=== PATIENT | male | born 1955 | race Caucasian/White ===

== ENCOUNTER 2016-12-31 12:05 | Emergency (ER) | payer OTHER ==
[2016-12-31 13:18] LABS: BASOPHIL 0.6 % (0-2); EOSINOPHIL 7.3 % (0-5); HGB 15.8 g/dl (13.2-18.0); LYMPHOCYTE 26.6 % (15-48); MCH 30.6 pg (25.0-31.0); MCHC 33.6 g/dL (32.0-36.0); MCV 90.9 fL (78.0-100.0); MPV 10.3 fL (6.0-9.5); NEUTROPHIL 52.5 % (41-80); PLT 207 K/uL (150-400); RBC 5.17 M/uL (4.70-6.00); WBC 6.7 K/uL (4.0-10.5)
[2016-12-31 13:27] LABS: ALBUMIN 4.3 g/dL (3.4-4.8); BILIRUBIN - TOTAL 0.5 mg/dL (0.1-1.0); CREATININE 1.5 mg/dL (0.7-1.2); GLOBULIN (CALCULATION) 2.9 g/dL (2.2-4.2); POTASSIUM 4.7 mmol/L (3.5-5.1); TOTAL PROTEIN 7.2 g/dL (6.4-8.3)
[2016-12-31 14:01] LABS: BILIRUBIN NEGATIVE (NEGATIVE); BLOOD 2+ Ery/uL (NEGATIVE); CLARITY CLEAR (CLEAR); COLOR YELLOW (YELLOW); GLUCOSE (U) NORMAL (NORMAL); KETONE (U) NEGATIVE (NEGATIVE); LEUKOCYTES NEGATIVE Leu/uL (NEGATIVE); NITRITE NEGATIVE (NEGATIVE); PROTEIN NEGATIVE (NEGATIVE); UROBILINOGEN 0.2 mg/dL (0.2-1.0); pH 6.5 (5.0-9.0)
[2016-12-31 14:05] LABS: URINARY RBC 20-50; URINARY WBC RARE
== END 2016-12-31 15:24 | disposition home or self-care (01) ==
LOC: FER 12:05
PROVIDERS: Emergency Medicine
DX: K57.92 Diverticulitis of intestine, part unspecified, without perforation or abscess without bleeding (principal); Z87.19 Personal history of other diseases of the digestive system; Z82.49 Family history of ischemic heart disease and other diseases of the circulatory system
CPT/HCPCS: 36415; 80053; 81001; 82150; 83690; 85025; 99284